=== PATIENT | female | born 1980 | race Two or more races ===

== ENCOUNTER 2024-03-13 11:11 | Emergency (ER) | payer OTHER ==
[~2024-03-13] VITALS: Ht 172.7 cm; Wt 72.6 kg
== END 2024-03-13 13:19 | disposition home or self-care (01) ==
LOC: ER 11:12
DX: S00.01XA Abrasion of scalp, initial encounter (principal); X58.XXXA Exposure to other specified factors, initial encounter; Y93.89 Activity, other specified; Y92.218 Other school as the place of occurrence of the external cause